=== PATIENT | male | born 1990 | race African-American/Black ===

== ENCOUNTER 2016-10-01 18:24 | Emergency (ER) | payer BC ==
--- NOTE | ~2016-10-01 | CT4 ---
[facility] A Service of [facility] RADIOLOGY TEXT RESULTS PATIENT: MAX MARTÍNEZ LOCATION: [facility] : [birth year] UNIT #: [id number] AGE: [address]: Franklin Rosario DO SEX: M ORDER DR: [id number] [facility] [address] [place], [place] [address] [id number] E MR#: [id number] Acc #: [id number] NAME: MAX MARTÍNEZ. : 1990 SEX: M STUDY DATE/TIME: 10/01/2016 19:08 UNIT: [facility] ROOM: STUDY DESCRIPTION: CT Abd and Pelv Wo Cont Attending Physician: Franklin Rosario D.O. Ordering Physician: Carlos Kong M.D. Primary Care Physician: Primary Care Physician No MEDICAL IMAGING REPORT This report is preliminary unless electronic signature is present EXAM CT abdomen and pelvis without contrast 10/01/2016 HISTORY 26-year-old male with low back pain and diarrhea for 1 week. HIV positive. COMPARISON CT abdomen and pelvis 09/22/2013. TECHNIQUE Helical scan performed through the abdomen and pelvis without oral or IV contrast. Coronal and sagittal reformatted images. This CT examination was performed with one or more of the following radiation dose reduction techniques: automatic exposure control, adjustment of mA and/or kV according to patient size, and iterative reconstruction. FINDINGS Visualized lung bases are unremarkable. There are again noted multiple hypoattenuating lesions throughout the liver, similar to prior examination. These again may represent small hepatic cysts or hemangiomas. These can be further evaluated with non-emergent multiphase hepatic CT or MRI if clinically warranted. The spleen,, pancreas, gallbladder, and both adrenal glands are unremarkable allowing for lack of IV contrast. There is a 2 mm nonobstructing right intrarenal stone. No ureteral stones or hydronephrosis. Abdominal aorta normal in course and caliber. Small bowel is unremarkable without obstruction. Appendix is grossly normal. Colon is unremarkable. No free fluid or free air. The urinary bladder and prostate gland are remarkable. No free pelvic fluid. No acute bony abnormality. [facility] A Service of [facility] RADIOLOGY TEXT RESULTS PATIENT: MAX MARTÍNEZ LOCATION: [facility] #: [id number] : [birth year] UNIT #: [id number] AGE: [address]: Franklin Rosario DO SEX: M ORDER DR: GENI 1. 2 mm punctate right intrarenal stone. No ureteral stones or hydronephrosis. 2. Grossly normal appendix. 3. Multiple small hypoattenuating lesions again noted throughout the liver, similar to prior examination from 09/22/2013. These again may represent small hepatic cysts or hemangiomas and can be further evaluated with a non-emergent multiphase CT or MRI if clinically warranted. Dictated by... Robin Gillespie M.D. THIS IS AN ELECTRONICALLY VERIFIED REPORT Robin Gillespie M.D. at 10/02/2016 6:48 PM AYUSH/sarika TD: 10/02/2016 09:25 JOB #: [id number] MEDICAL IMAGING REPORT COPY
[2016-10-01 15:43] LABS: BASOPHIL% 0.4 % (0-2.5); EOSINOPHIL% 0.3 % (0.0-7.0); HEMATOCRIT 45.6 % (38.0-50.0); HEMOGLOBIN 15.2 gm/dL (13.0-16.0); LYMPHOCYTE# 2.3 X10e3 (1.0-3.5); LYMPHOCYTE% 17.5 % (17.0-45.0); MEAN CELL VOLUME 80.1 FL (83-96); MEAN CORPUSCULAR HEMOGLOBIN 26.8 PG (28-34); MEAN CORPUSCULAR HGB CONC 33.4 g/dL (30-36); MEAN PLATELET VOLUME 8.6 FL (6.5-11.5); MONOCYTE# 1.1 X10e3 (0-1.0); MONOCYTE% 8.6 % (3.0-12.0); NEUTROPHIL# 9.6 X10e3 (1.5-7.1); NEUTROPHIL% 73.2 % (40-75); PLATELET COUNT 219 X10e3 (140-420); RED BLOOD COUNT 5.69 X10e (3.90-5.60); RED CELL DISTRIBUTION WIDTH 14.7 % (11.0-15.5); WHITE BLOOD COUNT 13.1 X10e3 (4.0-10.5)
[2016-10-01 15:44] LABS: DIFF IND NO
[2016-10-01 16:02] LABS: ALBUMIN SERUM 4.4 g/dL (3.5-5.0); ALKALINE PHOSPHATASE 63 U/L (32-92); ALT (SGPT) 17 U/L (10-40); AST (SGOT) 21 U/L (10-42); BILIRUBIN, DIRECT 0.1 mg/dL (0.0-0.2); BILIRUBIN,INDIRECT 0.6 mg/dL (0.0-0.9); BILIRUBIN,TOTAL 0.7 mg/dL (0.2-2.0); BLOOD UREA NITROGEN 13 mg/dL (9-23); BUN/CREATININE RATIO 8.12; CALCIUM SERUM 9.2 mg/dL (8.4-10.2); CARBON DIOXIDE 30 mmol/L (22-31); CHLORIDE 100 mmol/L (100-111); CREATININE SERUM 1.6 mg/dL (0.6-1.4); GLOM FILT RATE Estimated ABOVE60 mL/min (>60); GLUCOSE FASTING 103 mg/dL (70-110); LIPASE 15 U/L (22-51); POTASSIUM 3.8 mmol/L (3.5-5.1); PROTEIN TOTAL SERUM 7.6 g/dL (6.0-8.3); SODIUM 138 mmol/L (135-145)
[2016-10-01 18:00] LABS: URINE SOURCE CLEAN CATCH
[2016-10-01 18:05] LABS: URINE APPEARANCE CLEAR; URINE BILIRUBIN NEG (NEG); URINE BLOOD NEG (NEG); URINE COLOR YELLOW; URINE GLUCOSE NEG (NEG); URINE KETONE TRACE (NEG); URINE LEUKOCYTE ESTERASE 2+ (NEG); URINE NITRATE NEG (NEG); URINE PROTEIN TRACE (NEG); URINE SPECIFIC GRAVITY 1.032 (1.003-1.035)
[2016-10-01 18:06] LABS: CULTURE INDICATED? YES; URINE BACTERIA AUWI NEG (NEGATIVE); URINE SQUAMOUS EPITHELIAL CELL NONE SEEN /[HPF]; UWBCS1 AUWI 25-50 (0-5)
[~2016-10-01 18:24] MED LIST: AMOXICILLIN875 MG PO; CIPRO PO; LORTAB 5/500 TA1 TA1 PO; NO MEDICATIONS; ORUDIS75 M1 DOB; ORUDIS75 M1 PO; PHENERGAN PO; ZITHROMAX1 G/PKT PO
== END 2016-10-01 22:20 | disposition home or self-care (01) ==
LOC: CED 18:24
PROVIDERS: Emergency Medicine
DX: N39.0 Urinary tract infection, site not specified (principal)
CPT/HCPCS: 36415; 74176; 80048; 80076; 81003; 83690; 84484; 85025; 87086; 96361; 96374; 96375; 99284; J1885; J2270; J2405